=== PATIENT | male | born 1985 | race Caucasian/White ===

== ENCOUNTER → 2023-10-26 | Outpatient (CLI) | payer BC ==
--- NOTE | 2023-10-26 08:13 | US ---
EXAMINATION TYPE: US abdomen complete DATE OF EXAM: 10/26/2023 COMPARISON: NONE CLINICAL INDICATION: Male, 38 years old with history of R10.9 UNSPECIFIED ABDOMINAL PAIN R07.9 CHEST PAIN; LUQ pain TECHNIQUE: Multiple sonographic images of the abdomen are obtained. FINDINGS: EXAM MEASUREMENTS: Liver Length: 15.6 cm Gallbladder Wall: 0.2 cm CBD: 0.3 cm Spleen: 10.7 cm Right Kidney: 9.9 x 5.8 x 5.2 cm Left Kidney: 10.7 x 5.1 x 5.5 cm Pancreas: visualized portions wnl, limited by overlying midline bowel gas Liver: scanned intercostally, visualized portions appear wnl Gallbladder: wnl Evidence for sonographic Tejada's sign: no CBD: visualized portions wnl, limited by overlying bowel gas Spleen: wnl Right Kidney: wnl Left Kidney: wnl Upper IVC: wnl Abd Aorta: proximal portion obscured by overlying midline bowel gas, mid and distal portions wnl The liver is homogenous. The intrahepatic portion of the IVC and proximal abdominal aorta are within normal limits. There is no evidence of cholelithiasis. Common bile duct is unremarkable. The visu alized portions of the pancreas are homogenous. The spleen is unremarkable. Kidneys are symmetric a nd free of hydronephrosis. No renal lesions are seen. IMPRESSION: Portions of the study are limited. No distinct abnormality appreciated.
--- NOTE | 2023-10-26 12:12 | CA ---
Transthoracic Echo Report Name: Maurice Carmona Age: 38 Gender: M : 1985 Exam Date: 10/26/2023 08:25 Exam Location: [facility] Ht (in): 74 Wt (lb): 249 Ordering Physician: Xander Britt MD Attending/Referring Phys: Xander Britt MD [employer] Shelly Ruiz RDCS Procedure CPT: Indications: R10.9 UNSPECIFIED ABDOMINAL PAIN R07.9 CHEST PAIN Cardiac Hx: Technical Quality: Fair Contrast 1: Total Dose (mL): Contrast 2: Total Dose (mL): MEASUREMENTS (Male / Female) Normal Values 2D ECHO LV Diastolic Diameter PLAX 4.7 cm 4.2 - 5.9 / 3.9 - 5.3 cm LV Systolic Diameter PLAX 3.4 cm IVS Diastolic Thickness 1.2 cm 0.6 - 1.0 / 0.6 - 0.9 cm LVPW Diastolic Thickness 1.0 cm 0.6 - 1.0 / 0.6 - 0.9 cm LV Relative Wall Thickness 0.5 RV Internal Dim ED PLAX 3.6 cm LA Volume 64.0 cm??? 18 - 58 / 22 - 52 cm??? LA Volume Index 26.0 cm???/m??? 16 - 28 cm???/m??? M-MODE Aortic Root Diameter MM 2.9 cm LA Systolic Diameter MM 4.6 cm LA Ao Ratio MM 1.6 AV Cusp Separation MM 2.0 cm DOPPLER AV Peak Velocity 139.7 cm/s AV Peak Gradient 7.8 mmHg AV Mean Velocity 97.6 cm/s AV Mean Gradient 4.4 mmHg AV Velocity Time Integral 27.5 cm LVOT Peak Velocity 129.0 cm/s LVOT Peak Gradient 6.7 mmHg LVOT Velocity Time Integral 26.3 cm MV Area PHT 3.2 cm??? Mitral E Point Velocity 94.2 cm/s Mitral A Point Velocity 58.4 cm/s Mitral E to A Ratio 1.6 MV Deceleration Time 238.0 ms MV E' Velocity 14.5 cm/s Mitral E to MV E' Ratio 6.5 TR Peak Velocity 253.4 cm/s TR Peak Gradient 25.7 mmHg Right Ventricular Systolic Press 30.2 mmHg FINDINGS Left Ventricle Mildly increased left ventricular wall thickness. Left ventricular cavity size normal. No obvious regional wall motion abnormalities. Left ventricular ejection fraction is estimated at 55-60 %. Right Ventricle Mild right ventricular dilatation. Right ventricular systolic pressure within normal limits. Right Atrium Normal right atrial size. Left Atrium Mildly increased left atrial volume. Mildly increased left atrial area. Mitral Valve Structurally normal mitral valve. Mild thickening of the mitral valve leaflets. mild mitral regurgitation. Aortic Valve No aortic valve stenosis or regurgitation. Tricuspid Valve Structurally normal tricuspid valve. Mild tricuspid regurgitation. Pulmonic Valve Pulmonic valve not well visualized. Pericardium No pericardial effusion. Aorta Normal size aortic root and proximal ascending aorta. CONCLUSIONS 1. Normal left ventricle size and systolic function 2. Mild mitral and tricuspid regurgitation Previewed by: Dr. Alex Milian MD (Electronically Signed) Final Date: 26 October 2023 12:12
== END | disposition home or self-care (01) ==
LOC: RADUSWWP 07:32
PROVIDERS: ATTEND Family Medicine
DX: I34.0 Nonrheumatic mitral (valve) insufficiency (principal); I36.1 Nonrheumatic tricuspid (valve) insufficiency; R07.9 Chest pain, unspecified; R10.12 Left upper quadrant pain
CPT/HCPCS: 76700; 93306